=== PATIENT | female | born 1975 | race Caucasian/White ===

== ENCOUNTER → 2019-01-11 | Outpatient (CLI) | payer BC ==
--- NOTE | 2019-01-11 12:17 | KCIC ---
MRI of the lumbar spine without contrast 01/11/2019 CLINICAL HISTORY: Low back pain. History of previous lumbar spine surgeries. New onset one week ago of bilateral foot numbness. TECHNIQUE: Unenhanced T1-weighted and T2-weighted sagittal and axial and inversion recovery sagittal images of the lumbar spine were obtained. FINDINGS: No previous imaging studies are available for comparison. Minimal S-shaped curvature of the thoracolumbar spine is seen. The patient is post laminectomy and fusion using pedicle screws, stabilizing rods and bone graft material at L5-S1. Degenerative signal changes and loss of height are seen involving the L4-5 discs. Degenerative signal changes are seen within the marrow surrounding this disc. The conus medullaris is normal morphology, position, and signal characteristics. At the L1-2, L2-3 and L3-4 disc spaces there are minimal to mild generalized disc bulges. Degenerative changes are seen involving the facet joints bilaterally. There is mild ligamentum flavum hypertrophy bilaterally. There is prominence of the posterior epidural fat. These findings when combined do not result in significant central spinal canal or neural foraminal stenosis. At the L4-5 disc space there is a mild generalized disc bulge. This is eccentric to the right. Degenerative changes are seen involving the facet joints bilaterally. There is mild ligamentum flavum hypertrophy bilaterally. There is prominence of the posterior epidural fat. These findings when combined result in mild central spinal canal stenosis. No neural foraminal stenosis is seen. At L5-S1 level no focal recurrent disc herniation is seen. Degenerative changes are seen involving the facet joints bilaterally. These findings do not result in significant central spinal canal or neural foraminal stenosis. IMPRESSION: 1. Post laminectomy and fusion at L5-S1. 2. The changes of degenerative disc disease are seen involving the lumbar spine. These findings result in mild central spinal canal stenosis at L4-5. No neural foraminal stenosis is seen. Electronically signed by: Markos Dai MD (01/11/2019 12:15 PM) [email or web address]
== END | disposition home or self-care (01) ==
LOC: KCIC MRI 10:43
PROVIDERS: ATTEND Neurological Surgery
DX: M47.27 Other spondylosis with radiculopathy, lumbosacral region (principal); M48.061 Spinal stenosis, lumbar region without neurogenic claudication; M51.16 Intervertebral disc disorders with radiculopathy, lumbar region; M96.1 Postlaminectomy syndrome, not elsewhere classified; M43.27 Fusion of spine, lumbosacral region
CPT/HCPCS: 72148

== ENCOUNTER → 2019-01-13 | Outpatient (CLI) | payer BC ==
[~2019-01-13] MED LIST: CONTRAST GIVEN. MC PRN
[2019-01-13] MEDS: IOHEXOL 300 MG/ML 50 ML VIAL. IJ ONE (08:00)
[2019-01-13 09:25] VITALS: BP 131/78
--- NOTE | 2019-01-13 09:45 | RAD ---
Cervical myelogram, 01/13/2019: HISTORY: Cervical stenosis, previous surgery Under local anesthesia, aseptic conditions and fluoroscopic guidance a lumbar puncture was performed at the L2-3 level utilizing a 25-gauge Umang spinal needle. Good clear CSF flow was obtained following which 11 cc of Omnipaque 300 was injected into the thecal sac. The spinal needle was then removed and appropriate digital imaging of the cervical region was performed. 1.8 minutes of fluoroscopy time was utilized. 9 fluoroscopic spot images were recorded. The patient tolerated the procedure well and was sent to CT in good condition. The following findings are delineated on the myelogram: 1. There is an anterior fixation plate present at C5-6 attached to those vertebral bodies via 2 screws at each level. 2. There are moderate anterior extradural defects at C3-4, C4-5 and C6-7 as well as mild posterior extradural defects at those levels. The thecal sac narrows down to an AP diameter of 10-11 mm at all 3 of these levels. 3. There are small lateral extradural defects bilaterally at C4-5. CT of the cervical spine-post myelogram, 01/13/2019: Multidetector CT imaging was performed with multiplanar reconstructions produced. Following findings are delineated: 1. At C2-3 the central spinal canal and neural foramina are well maintained. 2. At C3-4 there are moderate degenerative changes involving the left facet joint. There is very slight anterolisthesis. There is moderate broad-based posterior disc bulging, slightly more prominent on the right. The thecal sac measures 10 mm in AP diameter at the midline. The neural foramina are well maintained. 3. Artifacts arising from the anterior fixation plate and screws at C5-6 partially degrade image quality through this region. At the C4-5 level there is moderate disc space narrowing with anterior and posterior marginal spurring. No disc herniation is seen. The thecal sac measures 10 mm in AP diameter at the midline. The spurring is causing moderate bilateral foraminal narrowing. 4. At C5-6 the disc space is fused. There is minimal residual posterior spurring. The central spinal canal and neural foramina are well maintained. 5. At C6-7 there is a laminectomy defect on the right. There is moderate disc space narrowing with anterior and posterior marginal spurring. There is mild posterior disc bulging. The thecal sac measures 9-10 mm in AP diameter at the midline. The spurring is causing mild bilateral foraminal narrowing at this level. 6. No significant posterior disc bulge or protrusion is seen at C7-T1. The central spinal canal and neural foramina are well maintained. IMPRESSION: 1. Previous anterior spinal fusion and instrumentation at C5-6, and right partial laminectomy at C6-7. 2. Moderate multilevel degenerative change which is greatest at the C4-5 and C6-7 disc levels, resulting in borderline central spinal stenosis and [id number] foraminal encroachment at those levels as described above. PQRS Compliance Statement: One or more of the following individualized dose reduction techniques were utilized for this examination: 1. Automated exposure control 2. Adjustment of the mA and/or kV according to patient size 3. Use of iterative reconstruction technique
[2019-01-13 10:00] VITALS: BP 135/62
== END | disposition home or self-care (01) ==
LOC: RAD 07:34 → EDUNIT# 08:00
PROVIDERS: ATTEND Neurological Surgery
DX: M48.02 Spinal stenosis, cervical region (principal); M47.812 Spondylosis without myelopathy or radiculopathy, cervical region; M50.223 Other cervical disc displacement at C6-C7 level; Z98.1 Arthrodesis status
CPT/HCPCS: 72126; 72240; Q9967